=== PATIENT | female | born 1955 | race Caucasian/White ===

== ENCOUNTER → 2017-11-20 | Outpatient (CLI) | payer OTHER ==
[~2017-11-20] MED LIST: ASPIR 8181 MG PO; ATENOLOL50 MG PO; LISINOPRIL5 MG PO; PLAVIX75 MG PO; SIMVASTATIN40 MG PO
== END | disposition home or self-care (01) ==
LOC: MAMMO 08:51
PROVIDERS: ATTEND Internal Medicine
DX: Z12.31 Encounter for screening mammogram for malignant neoplasm of breast (principal)
CPT/HCPCS: 77067

== ENCOUNTER → 2018-12-12 | Outpatient (CLI) | payer OTHER ==
--- NOTE | 2018-12-17 12:53 | Diagnostic Imaging Report ---
#[id number] - MGSCRBIL #BILATERAL DIGITAL SCREENING MAMMOGRAM WITH CAD: 12/12/2018 CLINICAL: Routine screening. Comparison is made to exam dated: 11/20/2017 mammogram - [facility]. The tissue of both breasts is predominantly fatty. Current study was also evaluated with a Computer Aided Detection (CAD) system. There are benign calcifications in both breasts. No significant masses, calcifications, or other findings are seen in either breast. There has been no significant interval change. IMPRESSION: BENIGN There is no mammographic evidence of malignancy. A 1 year screening mammogram is recommended. The patient will be notified by letter of the results. ROSIE MCDOWELL M.D., mc/filemon:12/17/2018 11:34:14 Varnish Melter: [place] DAWN(Alejandro)(M), [facility] letter sent: Normal Exam Mammogram BI-RADS: 2 Benign
== END ==
LOC: MAMMO 10:00
PROVIDERS: ATTEND Internal Medicine
DX: Z12.31 Encounter for screening mammogram for malignant neoplasm of breast (principal)
CPT/HCPCS: 77067

== ENCOUNTER → 2020-02-09 | Outpatient (CLI) | payer OTHER ==
--- NOTE | 2020-02-10 09:15 | Diagnostic Imaging Report ---
Exam: Bone mineral density study. History: Z12.31 Comparison: None Discussion: Evaluation of the left hip and lumbar spine was performed. The study is technically adequate. The patient's fracture risk is compared to an age-matched control. The patient denies prior surgery/fracture of the spine, hips or forearm. Left hip femoral neck bone mineral density: 0.770 g/cm2, T-score is -0.7, Z-score is 0.7. Left hip total bone mineral density: 0.924 g/cm2, T-score is -0.2, Z-score is 0.9. Lumbar spine total bone mineral density: 1.035 gm/cm2, T-score is -0.1, Z-score is 1.4. Impression: 1. Bone mineralization by WHO Classification of the left hip is normal, the fracture risk is not increased. 2. Bone mineralization by WHO Classification of the lumbar spine is normal, the fracture risk is not increased. Signed by: Dr. Rolo Alford MD on 02/10/2020 9:12 AM
== END ==
LOC: MAMMO 09:44
PROVIDERS: ATTEND Internal Medicine
DX: Z12.31 Encounter for screening mammogram for malignant neoplasm of breast (principal); Z13.820 Encounter for screening for osteoporosis
CPT/HCPCS: 77067; 77080

== ENCOUNTER → 2020-06-24 | Outpatient (CLI) | payer OTHER ==
--- NOTE | 2020-06-24 13:12 | Diagnostic Imaging Report ---
Right hip, 2 views INDICATION: ^SPRAIN OF RIGHT HIP Comparison: None available. Discussion: There is moderate narrowing of the right hip joint space with small osteophytes. Negative for grossly displaced fracture or dislocation. Soft tissues are unremarkable. IMPRESSION: Moderate osteoarthritis of the right hip. Negative for acute displaced fracture or dislocation. Signed by: Zelalem Vance MD on 06/24/2020 1:09 PM
== END ==
LOC: RAD 11:41
PROVIDERS: ATTEND Internal Medicine
DX: S73.101A Unspecified sprain of right hip, initial encounter (principal)